=== PATIENT | female | born 1980 | race Two or more races ===

== ENCOUNTER 2023-10-24 09:57 | Emergency (ER) | payer OTHER, SELFPAY ==
[2023-10-24 10:02] VITALS: BP 110/62; PULSE 74; O2SAT 96
[2023-10-24 10:09] VITALS: BP 104/65; PULSE 67; RESP 18; TEMP 36.3; O2SAT 98; BMI 29.7
[2023-10-24 13:58] VITALS: BP 114/65; PULSE 68; RESP 18; TEMP 36.6; O2SAT 100
--- NOTE | 2023-10-24 15:02 | ED.ANIMALBIT ---
HPI - Animal Bite General Chief Complaint: Animal Bite Stated Complaint: DOG BITE TO LT RICHARDSON T-1 Time Seen by Provider: 10/24/23 14:00 Source: patient Mode of arrival: ambulatory Limitations: no limitations History of Present Illness HPI narrative: 43-year-old female presents with dog bite to left anterior richardson that occurred last night by unknown dog while they were at the park. Patient reports she was attacked by a dog, unclear vaccination status. Unclear whose dog it was. Patient states that the dog went back with a known or and they left without saying anything. This was not reported to the police. She reports pain to her left anterior richardson. No fevers, chills, numbness, tingling, chest pain, shortness of breath, nausea, vomiting, abdominal pain. Patient has been ambulatory ever since. Patient states she went to [facility] yesterday however there was a long wait so she did not stay. Area has been cleaned multiple times and wrapped. No further injuries from this. Denies chest pain, shortness of breath, numbness and tingling. Related Data Previous Rx's ?Medication ?Instructions ?Recorded amoxicillin 875 mg-potassium 1 tab PO BID 7 days #14 tabs 10/24/23 clavulanate 125 mg tablet bacitracin 500 unit/gram topical 1 appl topical Q8H #28 grams 10/24/23 ointment ketorolac 10 mg tablet 10 mg PO TID PRN pain 5 days #15 10/24/23 tabs Allergies Allergy/AdvReac Type Severity Reaction Status Date / Time acetaminophen [From Tylenol] Allergy Swelling Verified 10/24/23 10:11 Review of Systems Review of Systems: Yes all other systems are reviewed and are negative [facility] Past Medical History Attestation statement: The following information was validated with the patient. Source: old records reviewed and nursing notes reviewed Social History Social History Advance Directives: No Do you have a plan to hurt others: No Plan Physical Exam ED Vital Signs: Vital Signs - 24 hr 10/24/23 10:09 10/24/23 13:58 10/24/23 16:09 Temperature 97.3 F 97.8 F 98.2 F Pulse Rate 67 68 54 Respiratory Rate 18 18 14 Blood Pressure 104/65 114/65 116/60 Pulse Oximetry 98 100 99 Oxygen Delivery Method Room Air Room Air Room Air 10/24/23 16:56 Temperature 98.2 F Pulse Rate 54 Respiratory Rate 14 Blood Pressure 116/60 Pulse Oximetry 99 Oxygen Delivery Method Room Air BMI result Body Mass Index 29.7 vss Appearance: Alert.? Oriented X3.? No acute distress.? Head: Normocephalic, atraumatic, no step-offs or deformities Eyes: Pupils equal, round and reactive to light.? CVS: Pulses normal.? Respiratory: No respiratory distress.? Abdomen: Soft and nontender.? Skin: Skin warm and dry.? Normal skin color.? Normal skin turgor.? + dog bite to the left anterior richardson ( imaging below) Extremities: No lower extremity edema.? No calf ttp. 5/5 strength to bilateral upper and lower extremities Back: No midline tenderness, no C-spine tenderness, full range of motion, no CVA tenderness bilaterally Neuro: Oriented X 3.? No motor deficit.? No sensory deficit. CN 2-12 intact Medications Administered Discontinued Medications Generic Name Dose Route Start Last Admin Trade Name Freq PRN Reason Stop Dose Admin Bacitracin 1 appl 10/24/23 14:57 10/24/23 15:59 Bacitracin Oint 0.9 Gm Packet TOPICAL 10/24/23 14:58 1 appl ONCE ONE Administration Protocol Diphtheria/Tetanus/Acell Pertussis 0.5 ml 10/24/23 14:57 10/24/23 15:37 Diphth,Pertus(Acell),Tet Adult 0.5 Ml Syringe IM 10/24/23 14:58 0.5 ml .ONCE ONE Administration Ketorolac Tromethamine 30 mg 10/24/23 14:59 10/24/23 15:55 Ketorolac Tromethamine 30 Mg/Ml Vial IM 10/24/23 15:00 30 mg ONCE ONE Administration Rabies Immune Globulin 1,424.28 unit 10/24/23 14:57 10/24/23 15:47 Rabies Immune Globulin/Pf 900 Unit/3 Ml Vial 20 unit/kg (1424.28 unit) 10/24/23 14:58 1,424.28 unit IM Administration ONCE ONE Rabies Vaccine Human Diploid Cell 1 ml 10/24/23 14:57 10/24/23 15:41 Rabies Vaccine, Human Diploid (Imovax) 1 Ml Vial IM 10/24/23 14:58 1 ml .ONCE ONE Administration Medical Decision Making Medical Decision Making [facility] Narrative: 1500 43-year-old female presents with dog bite that occurred yesterday, unknown vaccination status for dog patient unsure of her tetanus status. Physical exam significant for dog bite to the left anterior richardson ( imaging below) History and physical exam concerning for dog bite, no signs of foreign body. No signs of neurovascular compromise or acute threat to limb. Plan at this time will give the rabies shot, immunoglobulin, tetanus shot. Differential Diagnosis Differential Diagnoses: The differential diagnosis associated with the presentation includes History and physical exam concerning for dog bite, no signs of foreign body. No signs of neurovascular compromise or acute threat to limb. Admission/Observation Consideration of admission/observation: Escalation of care including admission/observation considered Prescription Management I considered prescription management with: Antiviral and Antibiotic Critical Care Time Critical Care Time Critical Care Time: Yes Total Critical Care Time: 45 Attestation: I attest to this time spent taking care of the patient, obtaining history, physical, reviewing labs, imaging, speaking to my attending, specialist or hospitalist. Discharge Plan Discharge Clinical Impression: Bite by animal, Dog bite Patient Disposition: Home, Self-Care Instructions: Animal Bite (ED), Rabies (ED) Additional Instructions: Take your medications as prescribed. If you were prescribed antibiotics today, it is important that you take your medication to their entirety, do not skip any doses, do not finish them early. Follow-up with your primary care provider this week. Return to the emergency department with new or worsening symptoms. Such as fevers, chills, chest pain, shortness of breath, nausea, vomiting, dizziness, headache, vision changes, lethargy In case of emergency call 911 Call Medical Day Stay tomorrow at [phone] to schedule an appointment to receive the remainder of your required Rabies Vaccines. You will need a total of 3 more injections. Bring the Rabies Vaccine Order Set sheet and your Rabies Vaccination Record with you to these appointments. If the day you are supposed to come back for the rabies vaccine falls on a weekend or a holiday, proceed to the Emergency Department to receive the required vaccination. Follow up with your primary care provider after completion of the vaccine to have a titer drawn to ensure the vaccines effectiveness. Please take your oral antibiotics as prescribed and apply topical antibiotics today and tomorrow. Toradol has been sent to your pharmacy, you tolerated this well in the department. Please take this as prescribed do not take this with ibuprofen, or other NSAIDs, do not mix this with alcohol. Side effects of this medication including increased risk for bleeding and possible kidney injury. Prescriptions: New amoxicillin-pot clavulanate 875-125 mg tablet 1 tab PO BID 7 Days Qty: 14 0RF ketorolac 10 mg tablet 10 mg PO TID PRN (Reason: pain) 5 Days Qty: 15 0RF bacitracin 500 unit/gram ointment 1 appl topical Q8H Qty: 28 0RF Referrals: Physician,Unknown J [Primary Care Provider] - 2 days Stand Alone Forms: Work/School Release Interventions: ED Discharge Assessment Last Done: 10/24/23 16:56 Discharge Date/Time: 10/24/23 16:57 Print Language: Welsh
[2023-10-24] MEDS: Diphth,Pertus(ACell),Tet Adult 0.5 ML SYRINGE IM (15:37)
[2023-10-24] MEDS: Rabies Vaccine, Human Diploid (Imovax) 1 ML VIAL IM (15:41)
[2023-10-24] MEDS: Rabies Immune Globulin/PF 900 UNIT/3 ML VIAL 1424.28 UNIT IM (15:47)
[2023-10-24] MEDS: Ketorolac Tromethamine 30 MG/ML VIAL IM (15:55)
[2023-10-24] MEDS: Bacitracin Oint 0.9 GM PACKET 1 APPL TOPICAL (15:59)
[2023-10-24 16:09] VITALS: BP 116/60; PULSE 54; RESP 14; TEMP 36.8; O2SAT 99
[2023-10-24 16:56] VITALS: BP 116/60; PULSE 54; RESP 14; TEMP 36.8; O2SAT 99
== END 2023-10-24 16:57 | disposition home or self-care (01) ==
PROVIDERS: Emergency Provider Student in an Organized Health Care Education/Training Program
DX: S81.852A Open bite, left lower leg, initial encounter (principal); Z20.3 Contact with and (suspected) exposure to rabies; Z29.14 Encounter for prophylactic rabies immune globulin; W54.0XXA Bitten by dog, initial encounter; Y93.9 Activity, unspecified; Y92.830 Public park as the place of occurrence of the external cause; Y99.9 Unspecified external cause status
CPT/HCPCS: 90375; 90471; 90472; 90675; 90715; 96372; 99284; J1885

== ENCOUNTER 2024-04-11 15:43 | Emergency (ER) | payer MEDICAID, SELFPAY ==
--- NOTE | ~2024-04-11 | XR_ITS ---
EXAMINATION: XR LUMBOSACRAL SPINE CLINICAL INFORMATION: Lower back pain. COMPARISON: None available. TECHNIQUE: Three views of the lumbosacral spine. FINDINGS: Normal vertebral body alignment. The lumbar lordosis is maintained. No acute fracture or subluxation. No significant loss of vertebral body or intervertebral disc height. Tiny multilevel anterior endplate osteophytes. No concerning lytic or blastic osseous lesion. No abnormal soft tissue calcification. XR/XR lumbar spine 2-3V IMPRESSION: Minimal multilevel degenerative disc disease. Electronically signed by: Michael Brewer MD 04/11/2024 08:59 PM EDT
--- NOTE | ~2024-04-11 | XR_ITS ---
EXAMINATION: XR HIP, LEFT Pelvis: CLINICAL INFORMATION: Pain in the left hip COMPARISON: None available. TECHNIQUE: Two views of the left hip. Single view pelvis FINDINGS: No fracture. Alignment is anatomic. Hip joint space is maintained. Soft tissues are unremarkable. XR/XR hip LT w PEL1V IMPRESSION: Normal left hip and pelvis. Electronically signed by: Oscar Hartmann MD 04/11/2024 08:15 PM EDT RP
[2024-04-11 16:22] VITALS: BP 102/62; PULSE 70; RESP 16; TEMP 36.6; O2SAT 100; BMI 29.3
--- NOTE | 2024-04-11 16:22 | ED.BACK ---
HPI - Back Pain/Injury General Chief Complaint: Back Pain/Injury Stated Complaint: l hip pain Time Seen by Provider: 04/11/24 17:54 History of Present Illness ED Provider: Shamir Arias HPI Narrative: 44 yold female presents to ED for low back left hip radiating down left leg pain without any trauma. Patient states having this for the past 5 days. Patient denies any urinary/bowel incontinence. Patient denies any IV drug use. Patient denies any urinary symptoms, nausea, vomiting, abdominal pain, or any history of IV drug use. Related Data Previous Rx's ?Medication ?Instructions ?Recorded amoxicillin 875 mg-potassium 1 tab PO BID 7 days #14 tabs 10/24/23 clavulanate 125 mg tablet bacitracin 500 unit/gram topical 1 appl topical Q8H #28 grams 10/24/23 ointment ketorolac 10 mg tablet 10 mg PO TID PRN pain 5 days #15 10/24/23 tabs ketorolac 10 mg tablet 10 mg PO Q6H PRN pain 5 days #20 04/11/24 tabs Allergies Allergy/AdvReac Type Severity Reaction Status Date / Time acetaminophen [From Tylenol] Allergy Swelling Verified 04/11/24 16:23 Review of Systems Review of Systems: back/hip pain Yes all other systems are reviewed and are negative [facility] Social History Social History Smoked in Last 30 Days: No Advance Directives: No Advance Directives Information Provided: No Do you have a plan to hurt others: No Plan Physical Exam Vital Signs: Vital Signs: Last Vital Signs Temp 97.4 F 04/11/24 21:10 Pulse 64 04/11/24 21:10 Resp 18 04/11/24 21:10 BP 107/62 04/11/24 21:10 Pulse Ox 99 04/11/24 21:10 O2 Del Method Room Air 04/11/24 21:10 BMI result Body Mass Index 29.3 Const: General: cooperative, healthy appearing, comfortable, no acute distress, well developed, alert, awake and Physically active Orientation/consciousness: patient oriented x3 HEENT: Head: Yes normal to inspection, Yes No palpable skull fracture present, Yes normocephalic and Yes atraumatic Throat: Yes posterior oropharynx normal, Yes tonsils normal and Yes uvula midline Eyes: General: appearance normal, both eyes and all related structures Neck: Neck: Yes normal visual inspection, Yes full ROM, Yes no lymphadenopathy, Yes no meningeal signs, Yes trachea midline, Yes supple, No anterior neck swelling and No tender Chest: Chest palpation & inspection: normal inspection of the chest and normal palpation of entire chest wall Resp: Effort & Inspection: normal respiratory effort and able to speak in complete sentences Auscultation: clear to auscultation bilaterally Cardio: Jugular venous distension: no JVD Heart sounds: S1 normal heart sound present and S2 normal heart sound present GI: Inspection: Yes normal to inspection Palpation (GI): Soft to palpation, not firm, nontender, no guarding and not rigid : General: Yes no CVA tenderness Back/Spine/Pelvis: Back: no CVA tenderness and back tenderness (lumbar) Skin: General skin exam: no rashes or lesions noted, elasticity normal and turgor normal Neuro: General: patient oriented x3, gait normal, tone normal, moves all extremities, Normal light touch and pain sensation, no meningeal signs, no focal motor deficits, CN's II-XI intact bilaterally and normal sensation to monofilament Extrem: General: Yes normal to inspection, Yes full ROM and Yes capillary refill normal Psych: Appearance: grossly normal, well kempt and not disheveled Course Course Course Narrative: This is a Rapid Medical Examination (RME) performed by Matilda Leo PA-C in triage. Full HPI, ROS, assessment and treatment plan per primary provider in the Main ED. 44 yo female presents to the ER for evaluation of left lower back and left hip pain for the last 4 days. No trauma or injury. Pain is severe, 10/10 and radiates from the left lower back to the left hip. No abdominal pain, nausea, vomiting, diarrhea, urinary symptoms. No radiation of the pain down the leg. She took ibuprofen 5 hours ago with no improvement. Plan: X-ray of the hip, UA. Medications Administered Discontinued Medications Generic Name Dose Route Start Last Admin Trade Name Freq PRN Reason Stop Dose Admin Ketorolac Tromethamine 30 mg 04/11/24 18:29 04/11/24 18:55 Ketorolac Tromethamine 30 Mg/Ml Vial IM 04/11/24 18:30 30 mg ONCE ONE Administration Medical Decision Making Medical Decision Making [facility] Narrative: 44-year-old female presents to ED for low back left hip left leg pain without any trauma. Patient states pain is worse on movement. X-ray UA ordered 9:11pm: Lumbar x-ray shows mild arthritis. Hip x-ray normal. UA negative for infection or . Not suspecting epidural abscess or cauda equinus. Not suspecting kidney stones. Patient explained worrisome signs informed to follow up with primary care provider. Differential Diagnosis Differential Diagnoses: The differential diagnosis associated with the presentation includes (Lumbar spine arthritis, back fracture, hip fracture, UTI, kidney stone) Admission/Observation Consideration of admission/observation: Escalation of care including admission/observation considered Lab Data [facility] Lab Attestation statement: I reviewed the patient's lab results. Labs: Lab Results 04/11/24 Range/Units 19:13 Urine Color Yellow Urine Appearance Clear Urine pH 5.0 (5.0-9.0) Ur Specific [place] >= 1.030 H (1.005-1.025) Urine Protein Negative (Neg-Trace) mg/dL Urine Glucose (UA) Negative (Negative) mg/dL Urine Ketones Trace (Negative) mg/dL Urine Blood Negative (Negative) Urine Nitrite Negative (Negative) Ur Leukocyte Esterase Negative (Negative) Urine Test NEGATIVE (NEGATIVE) Independent Interpretation I performed an independent interpretation of an: Plain X-Ray Radiology Impression Discussion of test interpretation with radiology: I have reviewed the radiologist's reading. Independent Historian Clinical information obtained from an independent historian. History obtained from or confirmed by: Other (Patient) External Record Review External record reviewed: Other (Prior visits) Prescription Management I considered prescription management with: Pain Medication Discharge Plan Discharge Clinical Impression: Lumbar radiculopathy Patient Disposition: Home, Self-Care Instructions: Lumbar Radiculopathy (ED), Lower Back Exercises (ED) Additional Instructions: X-ray shows arthritis of the spine. Recommend follow-up with primary care provider. Return to the ED immediately for any urinary/bowel incontinence, abdominal pain, nausea, vomiting, flank pain, fever, chills, paralysis of lower extremities, numbness, or any other concerning symptoms. FINDINGS: Normal vertebral body alignment. The lumbar lordosis is maintained. No acute fracture or subluxation. No significant loss of vertebral body or intervertebral disc height. Tiny multilevel anterior endplate osteophytes. No concerning lytic or blastic osseous lesion. No abnormal soft tissue calcification. XR/XR lumbar spine 2-3V IMPRESSION: Minimal multilevel degenerative disc disease. Electronically signed by: Michael Brewer MD 04/11/2024 08:59 PM EDT RP Prescriptions: New ketorolac 10 mg tablet 10 mg PO Q6H PRN (Reason: pain) 5 Days Qty: 20 0RF Rx Instructions: Patient received 30 mg IM of Toradol in the ED No Action amoxicillin-pot clavulanate 875-125 mg tablet 1 tab PO BID 7 Days Qty: 14 0RF ketorolac 10 mg tablet 10 mg PO TID PRN (Reason: pain) 5 Days Qty: 15 0RF bacitracin 500 unit/gram ointment 1 appl topical Q8H Qty: 28 0RF Stand Alone Forms: Work/School Release Print Language: Niuean
[2024-04-11] MEDS: Ketorolac Tromethamine 30 MG/ML VIAL IM (18:55)
[2024-04-11 19:22] LABS: Appearance Urine Clear; Color Urine Yellow; Glucose Urine UA Negative (Negative); Leukocyte Esterase Urine Negative (Negative); Nitrite Urine Negative (Negative); Specific Gravity - Urine >= 1.030 (1.005-1.025); Urine Blood Negative (Negative); Urine Ketones Trace mg/dL (Negative); Urine Protein Negative (Neg-Trace)
[2024-04-11 19:23] LABS: UPreg QC Valid YES; Urine Pregnancy NEGATIVE (NEGATIVE)
[2024-04-11 21:10] VITALS: BP 107/62; PULSE 64; RESP 18; TEMP 36.3; O2SAT 99
[2024-04-11] MEDS: predniSONE 20 MG TABLET 60 MG PO (21:27)
[2024-04-11 21:29] VITALS: BP 107/62; PULSE 64; RESP 18; TEMP 36.3; O2SAT 99
== END 2024-04-11 21:29 | disposition home or self-care (01) ==
PROVIDERS: Physician Assistant; Emergency Provider Internal Medicine
DX: M54.16 Radiculopathy, lumbar region (principal); M25.552 Pain in left hip; Z79.899 Other long term (current) drug therapy
CPT/HCPCS: 72100; 73502; 81003; 81025; 96372; 99284; J1885

== ENCOUNTER 2024-09-11 06:28 | Emergency (ER) | payer OTHER, SELFPAY ==
--- NOTE | ~2024-09-11 | XR_ITS ---
CLINICAL HISTORY: dog bite , bite ly at the heel 3 view right foot Comparison: None Findings: Bones intact. No dislocations. No significant arthritic change or erosions. No ankle effusion. No radiopaque foreign body. IMPRESSION: 1. No acute findings. No radiopaque foreign body. This document has been electronically signed by: Ondina Cruz MD on 09/11/2024 07:51:16
[2024-09-11 06:39] VITALS: BP 114/76; PULSE 81; RESP 20; TEMP 36.8; O2SAT 100; BMI 31.7
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
[2024-09-11] MEDS: Amoxicillin/Potassium Clav 875 MG TABLET PO (07:22)
[2024-09-11] MEDS: Morphine Sulfate Immed Release 15 MG TABLET PO (07:22)
[2024-09-11] MEDS: Ondansetron ODT 4 MG TAB.RAPDIS TRANSLINGU (07:22)
[2024-09-11] MEDS: Bacitracin Oint 0.9 GM PACKET 1 APPL TOPICAL (08:17)
[2024-09-11 08:28] VITALS: BP 114/76; PULSE 81; RESP 20; TEMP 36.8; O2SAT 100
== END 2024-09-11 08:29 | disposition home or self-care (01) ==
PROVIDERS: Emergency Provider Emergency Medicine
DX: S91.051A Open bite, right ankle, initial encounter (principal); M79.671 Pain in right foot; W54.0XXA Bitten by dog, initial encounter; Y93.9 Activity, unspecified; Y92.9 Unspecified place or not applicable; Y99.8 Other external cause status
CPT/HCPCS: 73630; 99283; 99284

== ENCOUNTER → 2024-09-11 07:12 | Outpatient (BNV) | payer OTHER, SELFPAY | PROVIDERS: Emergency Provider Emergency Medicine; Visit Provider Radiology Diagnostic Radiology | DX: S91.301A Unspecified open wound, right foot, initial encounter (principal); W54.0XXA Bitten by dog, initial encounter | CPT/HCPCS: 73630 ==